=== PATIENT | male | born 1975 | race Two or more races ===

== ENCOUNTER 2019-03-29 05:16 | Day surgery (SDC) | payer OTHER ==
[2019-03-29] MEDS ORDERED: PERCOCET 5-3251 EACH PO (13:06)
[2019-03-29] MEDS ORDERED: NEURONTIN300 MG PO (13:06)
[2019-03-29] MEDS ORDERED: COLACE100 MG PO (13:07)
== END 2019-03-29 17:50 | disposition home or self-care (01) ==
LOC: CIR.AMB 05:16 → SURG 07:00 → EDSTATUS 07:00 → CIR.AMB 07:00
DX: K43.0 Incisional hernia with obstruction, without gangrene (principal)